=== PATIENT | female | born 1995 | race Caucasian/White ===

== ENCOUNTER 2017-11-13 17:07 | Emergency (ER) | payer BC ==
[2017-11-13] MEDS ORDERED: AMOXicillin 250 MG CAP ONE (17:46)
[2017-11-13] MEDS ORDERED: predniSONE 20 MG TAB ONE (17:46)
== END 2017-11-13 17:45 | disposition home or self-care (01) ==
LOC: BURERS 17:07
DX: J20.9 Acute bronchitis, unspecified (principal)
CPT/HCPCS: 94760; J7506; J7620

== ENCOUNTER 2018-11-26 16:59 | Emergency (ER) | payer BC | END 2018-11-26 17:38 | disposition home or self-care (01) | LOC: BURERS 16:59 | DX: L05.01 Pilonidal cyst with abscess (principal) | CPT/HCPCS: 10081 ==

== ENCOUNTER 2020-04-16 07:11 | Observation (INO) | payer BC, OTHER ==
[2020-04-16] MEDS ORDERED: predniSONE 20 MG TAB ONE (07:53)
[2020-04-16] MEDS ORDERED: Albuterol Sulfate 1.25 MG/3 ML NEB ONE ×2 (09:00→09:02)
[2020-04-16] MEDS ORDERED: Magnesium 2 GM/50 ML BAG (IN WATER) ONE (10:43)
[2020-04-16 11:17] LABS: #Basophils 0.1 thou/uL (0.0-0.2); #Eosinphils 0.5 thou/uL (0.0-0.7); #Lymphocytes 1.2 thou/uL (1.20-3.40); #Monocytes 0.4 thou/uL (0.11-0.59); #Neutrophils 11.7 thou/uL (1.40-6.50); %Basophils 0.4 % (0.0-1.0); %Eosinophils 3.9 % (0.0-10.0); %Lymphocytes 8.9 % (21.0-51.0); %Monocytes 2.6 % (0.0-10.0); %Neutrophils 84.2 % (42.0-75.0); Hemoglobin 16.2 g/dL (12.0-16.0); Mean Corpuscular HGB CONC 31.8 g/dL (32.0-36.0); Mean Corpuscular Hemoglobin 29.1 pg (27.0-31.0); Mean Corpuscular Volume 91.6 fL (78.0-98.0); Mean Platelet Volume 8.4 fL (7.4-10.4); Platelet Count 364 thou/uL (130-400); RBC Distribution Width 12.2 % (11.5-14.5); Red Blood Cell (RBC) Count 5.57 mill/uL (4.20-5.40); White Blood Cell (WBC) Count 13.9 thou/uL (4.8-10.8)
[2020-04-16 11:25] LABS: ALT (SGPT) 25 U/L (8-55); AST (SGOT) 20 U/L (5-34); Albumin 4.8 g/dL (3.5-5.0); Alkaline Phosphatase 68 U/L (40-110); Anion Gap 15 mmol/L (10-20); BUN (Urea Nitrogen) 12 mg/dL (7.0-18.7); Bilirubin, Total 0.6 mg/dL (0.2-1.2); Calc. Creatinine Clearance 0 mL/min (70-130); Carbon Dioxide 20 mmol/L (22-29); Chloride 108 mmol/L (98-107); Estimated GFR-MDRD 68; Globulin 4.4 g/dL (2.4-3.5); Glucose 101 mg/dL (70-105); Potassium 4.1 mmol/L (3.5-5.1); Protein, Total 9.2 g/dL (6.0-8.3); Sodium 139 mmol/L (136-145)
[2020-04-16 11:30] LABS: Base Excess-Venous -2.7 mmol/L (-2.0 to 3.0); Bicarbonate (HCO3v) 20.6 mmol/L (22.0-28.0); CO2 Tension (PvCO2) 31.8 mmHg (40.0-50.0); Calcium, Ionized 1.11 mmol/L (See Comments:); Chloride 110 mmol/L (98-107); Hemoglobin - Calc 17.7 g/dL (12.0-16.0); Sodium 141 mmol/L (138-145); T. Carbon Dioxide 21.6 mmol/L (22.0-28.0); vO2 Saturation-calc 99.5 % (60.0-85.0)
[2020-04-16] MEDS ORDERED: Albuterol Sulfate 2.5 mg/0.5 ml Neb NEB PRN (13:30)
[2020-04-16 13:51] VITALS: BMI 38.9
--- NOTE | 2020-04-16 15:25 | RAD ---
PORTABLE CHEST: DATE: 04/16/2020. FINDINGS: An AP portable film at 0804 shows a normal-sized heart and clear lungs. No infiltrate or effusion wa s seen. The mediastinum appears normal. IMPRESSION: No acute finding. POS: HOME
[2020-04-16] MEDS: methylPREDNISolone Sod Succ/PF 125 MG/2 ML VIAL IVP SCH ×2 (16:23→21:34)
[2020-04-16] MEDS ORDERED: Albuterol Sulfate 2.5 mg/0.5 ml Neb NEB SCH (17:00)
[2020-04-16] MEDS: Albuterol Sulfate 2.5 mg/3 ml Neb NEB SCH ×2 (17:15→23:22)
[2020-04-16] MEDS ORDERED: Acetaminophen 325 MG TAB PO PRN (19:54)
[2020-04-16] MEDS: NORETHINDRONE E ESTRADIOL IRON PO SCH (21:33)
[2020-04-16] MEDS: Famotidine 20 MG TAB PO SCH (21:35)
[2020-04-16] MEDS: Mometasone/Formoterol 200/5 60 PUFF INH SCH (21:41)
[2020-04-17] MEDS: Albuterol Sulfate 2.5 mg/3 ml Neb NEB SCH ×6 (03:30→21:02)
[2020-04-17 05:27] LABS: #Basophils 0.1 thou/uL (0.0-0.2); #Lymphocytes 1.5 thou/uL (1.20-3.40); #Monocytes 0.5 thou/uL (0.11-0.59); #Neutrophils 12.8 thou/uL (1.40-6.50); %Basophils 0.5 % (0.0-1.0); %Lymphocytes 10.1 % (21.0-51.0); %Monocytes 3.1 % (0.0-10.0); %Neutrophils 86.3 % (42.0-75.0); Hemoglobin 16.2 g/dL (12.0-16.0); Mean Corpuscular Hemoglobin 29.5 pg (27.0-31.0); Mean Corpuscular Volume 92.5 fL (78.0-98.0); Mean Platelet Volume 8.5 fL (7.4-10.4); Platelet Count 332 thou/uL (130-400); RBC Distribution Width 12.5 % (11.5-14.5); Red Blood Cell (RBC) Count 5.48 mill/uL (4.20-5.40); White Blood Cell (WBC) Count 14.8 thou/uL (4.8-10.8)
[2020-04-17] MEDS: methylPREDNISolone Sod Succ/PF 125 MG/2 ML VIAL IVP SCH ×3 (07:00→21:03)
[2020-04-17] MEDS: Mometasone/Formoterol 200/5 60 PUFF INH SCH ×2 (09:05→21:06)
[2020-04-17] MEDS: Loratadine 10 MG TAB PO SCH (09:07)
[2020-04-17] MEDS: Famotidine 20 MG TAB PO SCH ×2 (09:07→21:01)
--- NOTE | 2020-04-17 11:15 | RAD ---
2 VIEW CHEST: Date: 04/17/2020 HISTORY: Asthma. Follow-up. Comparison made to portable film of 04/16/2020. FINDINGS: Lung fine are clear. No infiltrate. Heart and mediastinum unremarkable. IMPRESSION: No acute findings. POS: [facility]
[2020-04-17 16:49] LABS: SARS-CoV-2 MS2 Positive; SARS-CoV-2 N Gene Negative; SARS-CoV-2 S Gene Negative; SARS-CoV-2 orf1ab Negative
[2020-04-17] MEDS ORDERED: Albuterol Sulfate 1.25 MG/3 ML NEB NEB PRN (19:15)
[2020-04-17] MEDS: Albuterol Sulfate 1.25 MG/3 ML NEB NEB SCH (21:02)
[2020-04-17] MEDS: NORETHINDRONE E ESTRADIOL IRON PO SCH (21:03)
[2020-04-18 02:58] VITALS: TEMP 97.8
[2020-04-18] MEDS: methylPREDNISolone Sod Succ/PF 125 MG/2 ML VIAL IVP SCH ×2 (05:24→15:08)
[2020-04-18] MEDS: Loratadine 10 MG TAB PO SCH (09:03)
[2020-04-18] MEDS: Famotidine 20 MG TAB PO SCH (09:03)
[2020-04-18] MEDS: Mometasone/Formoterol 200/5 60 PUFF INH SCH (09:09)
[2020-04-18] MEDS: Albuterol Sulfate 1.25 MG/3 ML NEB NEB SCH ×3 (09:13→16:08)
[2020-04-18 12:29] VITALS: BP 138/90
== END 2020-04-18 16:30 | disposition home or self-care (01) ==
LOC: BURERS 07:11 → BURMED 12:31
PROVIDERS: ADMIT Family Medicine; ATTEND Family Medicine
DX: J45.901 Unspecified asthma with (acute) exacerbation (principal); F12.10 Cannabis abuse, uncomplicated; R03.0 Elevated blood-pressure reading, without diagnosis of hypertension; F41.9 Anxiety disorder, unspecified; F32.9 Major depressive disorder, single episode, unspecified; E66.9 Obesity, unspecified; Z68.39 Body mass index [BMI] 39.0-39.9, adult; Z79.51 Long term (current) use of inhaled steroids; Z79.899 Other long term (current) drug therapy; Z91.010 Allergy to peanuts; Z91.012 Allergy to eggs; Z91.018 Allergy to other foods
CPT/HCPCS: 36415; 71045; 71046; 80053; 82330; 82803; 85025; 85379; 87635; 96365; 96375; 96376; G0378; J2930; J3475; J7512; J7611; J7620; U0003

== ENCOUNTER 2020-08-15 08:36 | Emergency (ER) | payer BC, OTHER ==
[2020-08-15] MEDS ORDERED: Albuterol Sulfate 1.25 MG/3 ML NEB ONE (08:56)
[2020-08-15] MEDS ORDERED: predniSONE 20 MG TAB ONE (09:00)
[2020-08-15] MEDS ORDERED: Ondansetron ODT 4 MG TAB ONE (09:59)
[2020-08-16 14:00] LABS: SARS-CoV-2 MS2 Positive; SARS-CoV-2 N Gene Negative; SARS-CoV-2 S Gene Negative; SARS-CoV-2 by NAA Not Detected (NotDetected); SARS-CoV-2 orf1ab Negative
== END 2020-08-15 10:25 | disposition home or self-care (01) ==
LOC: BURERS 08:36
DX: J45.901 Unspecified asthma with (acute) exacerbation (principal); F41.9 Anxiety disorder, unspecified; R11.2 Nausea with vomiting, unspecified; F32.9 Major depressive disorder, single episode, unspecified; Z79.51 Long term (current) use of inhaled steroids; Z20.828 Contact with and (suspected) exposure to other viral communicable diseases
CPT/HCPCS: 87635; 94640; 94760; J7512; J7620; Q0162; U0003